=== PATIENT | female | born 1950 | race Caucasian/White ===

== ENCOUNTER 2018-08-24 11:05 | Outpatient (CLI) | payer MEDICARE | END 2018-08-24 11:06 | disposition home or self-care (01) | LOC: LABBT 11:05 | PROVIDERS: ATTEND Orthopaedic Surgery | DX: Z01.818 Encounter for other preprocedural examination (principal); S82.61XA Displaced fracture of lateral malleolus of right fibula, initial encounter for closed fracture | CPT/HCPCS: 93005; 93010 ==

== ENCOUNTER 2018-08-26 11:42 | Day surgery (SDC) | payer MEDICARE ==
[2018-08-24 12:10] VITALS: BMI 36.3
[2018-08-26] MEDS ORDERED: Midazolam HCl 2 mg/2 ml Vial ONE (11:44)
[2018-08-26] MEDS ORDERED: Fentanyl 100 MCG/2 ML VIAL ONE ×3 (11:44→14:49)
[2018-08-26] MEDS ORDERED: Bupivacaine HCl 0.5%/Epinephrine 1:200,000/PF 30 ml Vial ONE (12:17)
[2018-08-26] MEDS ORDERED: Ondansetron PF 4 MG/2 ML Vial ONE (12:55)
[2018-08-26] MEDS ORDERED: Ketorolac Tromethamine 30 MG/ML VIAL ONE (12:55)
[2018-08-26] MEDS ORDERED: ePHEDrine 50 MG/ML VIAL ONE (12:55)
[2018-08-26] MEDS ORDERED: Lidocaine 1% PF 5 ML VIAL ONE (12:55)
[2018-08-26] MEDS ORDERED: Dexamethasone 20 MG/5 ML VIAL ONE (12:55)
[2018-08-26] MEDS ORDERED: PROPOFOL 200 MG/20 ML VIAL ONE (12:55)
--- NOTE | 2018-08-26 15:38 | RAD ---
RIGHT ANKLE 3 VIEWS: Date; 08/26/18 HISTORY: Right ankle sprain, distal fibular fracture. FINDINGS/IMPRESSION: Three spot fluoroscopic intraoperative images of the right ankle demonstrate interval reduction and i nternal fixation of the lateral malleolar fracture with plate and screws since earlier exam of . Anatomic alignment has been restored. POS: CELINA
[2018-08-26] MEDS ORDERED: traMADol HCl 50 MG TAB ONE (15:50)
--- NOTE | 2018-08-27 00:57 | OP ---
DATE OF PROCEDURE: 08/26/2018 PREOPERATIVE DIAGNOSIS: Right lateral malleolus fracture. POSTOPERATIVE DIAGNOSIS: Right lateral malleolus fracture. PROCEDURE PERFORMED: Open reduction and internal fixation, right lateral malleolus. ANESTHESIA: General. MARKET RESEARCHER: Joe Levi PA-C TOURNIQUET TIME: 32 minutes at 300 mmHg. IMPLANTS: Synthes 2.7 mm variable angle LCP distal lateral fibular plate, 4-hole. COMPLICATIONS: None. DRAINS: None. SPECIMEN: None. OUTCOME: Anatomic alignment. INDICATIONS FOR PROCEDURE: The patient is a 68-year-old lady, who is status post ground level fall with twisting injury to her right ankle. She was found to have a lateral malleolus fracture with some lateral displacement with measurement of 4 mm displacement at the fracture itself. After discussion with the patient including risks and benefits as well as treatment options including nonsurgical management, we have opted to proceed with open reduction and internal fixation given this degree of displacement in hopes of restoring the ankle to anatomic alignment and improving function. Informed consent has been obtained. I believe all questions answered. DESCRIPTION OF PROCEDURE: The patient was brought to the operating room and a time-out performed followed by induction of general anesthesia. Next, a sterile prep and drape was performed of the right lower extremity. The limb was exsanguinated with Esmarch bandage, tourniquet inflated to 300 mmHg. Next a vertical incision was made at the level of the lateral malleolus. After skin was sharply incised, dissection was carried down bluntly exposing the lateral cortex of the lateral malleolus and the fracture. Using minimal subperiosteal dissection, the fracture edges were clearly visualized and then the fracture reduced and held in place with a bone tenaculum. It should be noted the patient's bone quality was not great with the bone tenaculum actually piercing the cortical bone quite easily. Once anatomically reduced, a 4-hole 2.7 mm variable angle LCP distal lateral fibular plate was applied to the lateral cortex of the fibula. This was provisionally held in place with 3.5 mm screw in one of the slotted holes proximal to the fracture. Once the plate held firmly against the bone, a total of 5 locking screws were placed in the distal portion of the plate capturing the distal fragment. An additional 3.5 mm screw was placed proximally followed by a 2.7 mm screw proximally. At the completion of this, AP, lateral, and mortise x-rays were obtained that showed anatomic alignment of the fracture and acceptable placement of the hardware. The wound was then irrigated with normal saline and closed in layers with 0 Vicryl deep followed by 2-0 Vicryl subcutaneously and neema for the skin. Xeroform gauze, Webril, and fiberglass splint were applied to the ankle. Tourniquet was let down at the completion of dressing, and the patient was transferred to recovery room in stable condition. There were no complications. She tolerated the procedure well. Job ID: [id number]
== END 2018-08-26 16:20 | disposition home or self-care (01) ==
LOC: SDC 11:42
PROVIDERS: ATTEND Orthopaedic Surgery
PROC: 0QSJ04Z Reposition Right Fibula with Internal Fixation Device, Open Approach (ICD-10-PCS; principal; 2018-08-26)
DX: S82.61XA Displaced fracture of lateral malleolus of right fibula, initial encounter for closed fracture (principal); I10 Essential (primary) hypertension; K21.9 Gastro-esophageal reflux disease without esophagitis; G43.909 Migraine, unspecified, not intractable, without status migrainosus; Z79.82 Long term (current) use of aspirin; Z79.899 Other long term (current) drug therapy; Z88.2 Allergy status to sulfonamides; X50.1XXA Overexertion from prolonged static or awkward postures, initial encounter; W10.9XXA Fall (on) (from) unspecified stairs and steps, initial encounter
CPT/HCPCS: 27792; 73610; 76000; C1713; J0670; J1100; J1885; J2001; J2250; J2405; J2704; J3010; J3490

== ENCOUNTER → 2020-10-05 | Day surgery (SDC) | payer MEDICARE | LOC: BICULT 12:38 | PROVIDERS: ATTEND Family Medicine | PROC: 0H9T3ZX Drainage of Right Breast, Percutaneous Approach, Diagnostic (ICD-10-PCS; principal; 2020-10-05) | DX: C50.411 Malignant neoplasm of upper-outer quadrant of right female breast (principal); Z88.2 Allergy status to sulfonamides | CPT/HCPCS: 19083; 88305; 88341; 88342 ==

== ENCOUNTER 2020-11-29 12:45 | Outpatient (CLI) | payer MEDICARE ==
[2020-11-29 14:49] LABS: #Basophils 0.1 10x3/uL (0.0-0.2); #Eosinphils 0.2 10x3/uL (0.0-0.5); #Monocytes 0.9 10x3/uL (0.0-1.1); %Basophils 0.9 % (0.0-2.0); %Eosinophils 2.6 % (0.0-6.0); %Lymphocytes 19.3 % (18.0-47.0); %Monocytes 11.4 % (0.0-10.0); %Neutrophils 65.5 % (40.0-75.0); Mean Corpuscular HGB CONC 32.5 g/dL (32.0-36.0); Mean Corpuscular Hemoglobin 27.8 pg (27.0-33.0); Mean Corpuscular Volume 85.7 fl (81.6-98.3); Mean Platelet Volume 9.6 fl (7.4-10.4); Platelet Count 271 10x3/uL (150-450); RBC Distribution Width 14.2 % (11.5-14.5); Red Blood Cell (RBC) Count 5.03 10x6/uL (3.90-5.03); White Blood Cell (WBC) Count 7.7 10x3/uL (3.5-10.5)
[2020-11-29 15:03] LABS: Anion Gap 14 mmol/L (10-20); BUN (Urea Nitrogen) 26 mg/dL (9.8-20.1); Calc. Creatinine Clearance 0 mL/min (70-130); Calcium 9.4 mg/dL (7.8-10.44); Carbon Dioxide 20 mmol/L (23-31); Chloride 111 mmol/L (98-107); Glucose 87 mg/dL (80-115); Potassium 4.3 mmol/L (3.5-5.1); Sodium 141 mmol/L (136-145)
== END 2020-11-29 12:46 | disposition home or self-care (01) ==
LOC: LABBT 12:45
PROVIDERS: ATTEND Surgery
DX: Z01.818 Encounter for other preprocedural examination (principal); C50.911 Malignant neoplasm of unspecified site of right female breast
CPT/HCPCS: 71046; 80048; 85025; 93005; 93010

== ENCOUNTER 2020-11-30 08:33 | Day surgery (SDC) | payer MEDICARE ==
[2020-11-29 09:19] VITALS: BMI 37.3
[2020-11-30] MEDS ORDERED: Isosulfan Blue 50 MG/5 ML VIAL ONE (10:26)
[2020-11-30] MEDS ORDERED: Bupivacaine 0.25% HCL 30 ML VIAL ONE (10:26)
[2020-11-30] MEDS ORDERED: Lidocaine 1% w/Epinephrine 1:100K 20 ML VIAL ONE (10:26)
[2020-11-30] MEDS ORDERED: Fentanyl 100 MCG/2 ML VIAL ONE ×2 (10:32→13:20)
[2020-11-30] MEDS ORDERED: Lidocaine 1% PF 5 ML VIAL ONE (11:00)
[2020-11-30] MEDS ORDERED: PROPOFOL 200 MG/20 ML VIAL ONE (11:00)
[2020-11-30] MEDS ORDERED: ePHEDrine Sulfate 50 MG/10 ML VIAL ONE (11:00)
[2020-11-30] MEDS ORDERED: PHENYLEPHRINE-NS 100 MCG/ML 10 ML SYRINGE ONE (11:00)
[2020-11-30] MEDS ORDERED: Dexamethasone 20 MG/5 ML VIAL ONE (11:00)
[2020-11-30] MEDS ORDERED: Ondansetron PF 4 MG/2 ML Vial ONE (11:00)
[2020-11-30] MEDS ORDERED: Rocuronium Bromide 10 MG/ML (10ML VIAL) ONE (11:00)
[2020-11-30] MEDS ORDERED: SUGAMMADEX SODIUM 200 MG/2 ML VIAL ONE (11:57)
[2020-11-30] MEDS ORDERED: HYDROcodone/Acetaminophen 5/325 mg Tablet ONE (15:14)
== END 2020-11-30 15:45 | disposition home or self-care (01) ==
LOC: SDC 08:33
PROVIDERS: ATTEND Surgery
PROC: 0HBT0ZZ Excision of Right Breast, Open Approach (ICD-10-PCS; principal; 2020-11-30)
PROC: 07B50ZX Excision of Right Axillary Lymphatic, Open Approach, Diagnostic (ICD-10-PCS; 2020-11-30)
DX: C50.411 Malignant neoplasm of upper-outer quadrant of right female breast (principal); C77.3 Secondary and unspecified malignant neoplasm of axilla and upper limb lymph nodes; I10 Essential (primary) hypertension; K21.9 Gastro-esophageal reflux disease without esophagitis; R73.03 Prediabetes; Z17.0 Estrogen receptor positive status [ER+]; Z79.82 Long term (current) use of aspirin; Z79.899 Other long term (current) drug therapy; Z88.2 Allergy status to sulfonamides
CPT/HCPCS: 19301; 38525; 38900; 76098; 78195; 88307; 88342; A9541; Q9968; J0690; J1100; J2405; J2704; J3010; S0020